=== PATIENT | female | born 1960 | race Caucasian/White ===

== ENCOUNTER 2016-07-31 12:52 | Emergency (ER) | payer BC ==
[~2016-07-31] VITALS: Wt 67.0 kg
[2016-07-31] MEDS ORDERED: ASPIRIN 325 MG TAB PO STA (13:48)
[2016-07-31 14:30] LABS: BASOPHILS % 0.4 % (0.0-2.0); EOSINOPHILS # 0.1 10^3/ul (0.0-0.5); EOSINOPHILS % 1.6 % (0.0-7.0); HEMATOCRIT 43.7 % (37.0-47.0); LYMPHOCYTES # 2.5 10^3/ul (0.8-2.9); LYMPHOCYTES % 34.3 % (15.0-51.0); MEAN CORPUSCULAR HEMOGLOBIN 30.6 pg (29.0-33.0); MEAN CORPUSCULAR HGB CONC 34.2 g/dl (32.0-37.0); MEAN CORPUSCULAR VOLUME 89.4 fl (82.0-101.0); MEAN PLATELET VOLUME 8.9 fl (7.4-10.4); MONOCYTE # 0.2 10^3/ul (0.3-0.9); MONOCYTES % 3.4 % (0.0-11.0); NEUTROPHIL # 4.4 10^3/ul (1.6-7.5); NEUTROPHILS % 60.3 % (39.0-77.0); PLATELET COUNT 267 10^3/UL (140-440); RED BLOOD COUNT 4.89 10^6/ul (4.20-5.40); RED CELL DISTRIBUTION WIDTH 13.3 % (11.5-14.5); UNCORRECTED WBC 7.4 10^3/ul (4.8-10.8); WHITE BLOOD COUNT 7.4 10^3/ul (4.8-10.8)
[2016-07-31] MEDS ORDERED: PANT40TA3 PO (14:31)
[2016-07-31] MEDS ORDERED: CHOL100062 PO (14:32)
[2016-07-31 14:40] LABS: INR 0.99; PARTIAL THROMBOPLASTIN TIME 26.3 Sec (25.0-35.0); PROTIME 13.1 Sec (12.2-14.2)
[2016-07-31 14:43] LABS: CONDITION 1
--- NOTE | 2016-07-31 14:45 | RADRPT ---
PROCEDURE: XR CHEST AP PORTABLE CLINICAL INDICATION: Chest pain TECHNIQUE: Single frontal view of the chest COMPARISON: None. FINDINGS: The cardiomediastinal silhouette and pulmonary vasculature are normal. The lungs are clear. No consolidation, effusion, or pneumothorax. The osseous structures are unremarkable. IMPRESSION: No acute cardiopulmonary process. RPTAT:PP .Mundo Conrad MD, MD Date Time Electronically viewed and signed by .Mundo Conrad MD, MD on 07/31/2016 14:45 .V/
[2016-07-31 14:46] LABS: CHLORIDE 104 mmol/L (97-110); POTASSIUM 4.2 mmol/L (3.5-5.1); SODIUM 144 mmol/L (135-144)
[2016-07-31 14:49] LABS: ANION GAP 20 (8-16); BLOOD UREA NITROGEN 12 mg/dl (7-20); CARBON DIOXIDE 24 mmol/L (21-31); CREATININE 0.55 mg/dl (0.44-1.00); GLUCOSE 106 mg/dl (70-220)
[2016-07-31 14:50] LABS: CALCIUM 9.1 mg/dl (8.4-10.2)
[2016-07-31 15:17] LABS: TROPONIN-I < 0.012 ng/ml (0.00-0.12)
[2016-07-31] MEDS ORDERED: KETOROLAC 15 MG INJ IV STA (15:24)
--- NOTE | 2016-07-31 16:11 | ERD ---
ER Documentation Chief Complaint Date/Time DATE: 07/31/16 TIME: 16:08 Chief Complaint CHEST PAIN SINCE YESTERDAY. WITH MILD PRESSURE. NO N/V HPI This is a 56-year-old female who presents to the emergency room for evaluation of chest pain, and left arm pain for the past 24 hours. The patient does state that the pain is constant and aching worse with left arm movement. She denies any nausea, vomiting, diaphoresis or shortness of breath associated with this. She came to the ER today for evaluation. ROS All systems reviewed and are negative except as per history of present illness. Medications Home Meds Reported Medications Cholecalciferol* (Vitamin D3*) 1,000 Unit Tablet, 2000 UNIT PO DAILY, TAB 07/31/16 Pantoprazole* (Protonix*) 40 Mg Tablet.dr, 40 MG PO DAILY, TAB 07/31/16 Allergies Allergies: Coded Allergies: No Known Drug Allergy (Verified Allergy, Unknown, 07/31/16) Uncoded Allergies: CONTRAST (Allergy, Severe, BREATHING, 07/31/16) PMhx/Soc Medical and Surgical Hx: pt denies Medical Hx History of Surgery: Yes (HYSTERECTOMY, OVARY CYST REMOVAL) Hx Alcohol Use: No Hx Substance Use: No Hx Tobacco Use: No Smoking Status: Never smoker Physical Exam Vitals Vital Signs Date Time Temp Pulse Resp B/P Pulse Ox O2 Delivery O2 Flow Rate FiO2 07/31/16 13:35 Nasal Cannula 2 07/31/16 12:54 98.8 98 20 125/88 98 Physical Exam INITIAL VITAL SIGNS: Reviewed by me GENERAL: The patient is well developed and appropriate for usual state of health in no apparent distress HEENT: Pupils equal, round, and reactive to light. EOMI. There is no scleral icterus. NECK: C-spine is soft and supple, there is no meningismus. There is no cervical lymphadenopathy. LUNGS: Clear to auscultation bilaterally. There are no rales, wheezes or rhonchi. HEART: Regular rate and rhythm, no murmurs, clicks, rubs or gallops. ABDOMEN: Soft, non-tender, non-distended. There are bowel sounds in all four quadrants. No rebound or guarding. EXTREMITIES: There is no peripheral cyanosis or edema. No focal swelling or erythema. NEUROLOGICAL: The patient moves all four extremities with 5/5 strength. Cranial nerves II - XII are intact. Normal gait. Alert and oriented SKIN: There is no apparent rash or petechiae. HEME/LYMPHATIC: There is no evidence of excessive bruising or lymphedema. PSYCHIATRIC: The patient does not appear anxious or depressed. Result Diagram: 07/31/16 1400 07/31/16 1400 Results 24 hrs Laboratory Tests Test 07/31/16 14:00 Activated Partial Thromboplast Time 26.3Sec Anion Gap 20 Basophils # 0.010^3/ul Basophils % 0.4% Blood Urea Nitrogen 12mg/dl Calcium Level 9.1mg/dl Carbon Dioxide Level 24mmol/L Chloride Level 104mmol/L Creatinine 0.55mg/dl Eosinophils # 0.110^3/ul Eosinophils % 1.6% Glucose Level 106mg/dl Hematocrit 43.7% Hemoglobin 15.0g/dl INR International Normalized Ratio 0.99 Lymphocytes # 2.510^3/ul Lymphocytes % 34.3% Mean Corpuscular Hemoglobin 30.6pg Mean Corpuscular Hemoglobin Concent 34.2g/dl Mean Corpuscular Volume 89.4fl Mean Platelet Volume 8.9fl Monocytes # 0.210^3/ul Monocytes % 3.4% Neutrophils # 4.410^3/ul Neutrophils % 60.3% Nucleated Red Blood Cells # 0.010^3/ul Nucleated Red Blood Cells % 0.0/100WBC Platelet Count 68264^3/UL Potassium Level 4.2mmol/L Prothrombin Time 13.1Sec Prothrombin Time Ratio 1.0 Red Blood Count 4.8910^6/ul Red Cell Distribution Width 13.3% Sodium Level 144mmol/L Troponin I < 0.012ng/ml White Blood Count 7.410^3/ul Current Medications Medications (Trade) Dose Ordered Sig/Eliazar Route PRN Reason Start Time Stop Time Status Last Admin Dose Admin Aspirin (Aspirin) 325 mg ONCE STAT PO 07/31/16 13:48 07/31/16 13:49 DC 07/31/16 13:57 Ketorolac Tromethamine (Toradol) 15 mg ONCE STAT IV 07/31/16 15:24 07/31/16 15:25 DC 07/31/16 15:54 Procedures/MDM EKG: Rate/Rhythm: [Normal Sinus Rhythm] QRS, ST, T-waves: [No changes consistent w/ acute ischemia] Impression: [No evidence of ischemia or arrhythmia] Chest X-ray 1V Interpreted by me: Soft Tissue: No acute abnormalities Bones: No acute abnormalities Mediastinum/Cardiac Silhouette/Lungs: [No acute abnormalities] This 56-year-old female presents to the emergency room for evaluation of chest pain and left arm pain that has been constant for the past 24 hours. Worse with movement. This patient had a nonischemic EKG, normal troponin, normal chest x-ray. This patient has a heart score of 0. She is in no acute distress after receiving Toradol in the emergency room. She will be discharged home at this time with a prescription for Motrin for muscular chest pain. I advised to return to the ER for chest pain worsen and she verbalized understanding. Differential diagnoses entertained was broad with potential high acuity. Patient has been evaluated for acute myocardial infarction, unstable angina, aortic dissection, pulmonary embolism, other intrathoracic and cardiac concerns. Ultimately the patient's evaluation is nondiagnostic. Based on the patient's lack of risk factors, as well as the patient's clinical, laboratory, and imaging data, the patient appears to be low risk for these high risk causes of chest pain. Departure Diagnosis: Primary Impression: Chest pain Additional Impression: Left arm pain Condition: Stable JUANITAAngelaCATALINA OWUSU Jul 31, 2016 16:10
[2016-07-31] MEDS ORDERED: IBUP800T25 PO (16:13)
[2016-07-31 16:24] VITALS: BP 144/77; PULSE 83; RESP 20; TEMP 98.8
== END 2016-07-31 16:26 | disposition home or self-care (01) ==
LOC: E/R 12:52
DX: R07.9 Chest pain, unspecified (principal); M79.602 Pain in left arm
CPT/HCPCS: 36415; 71010; 80048; 84484; 85025; 85610; 85730; 96374; 99285; J1885; Z7610

== ENCOUNTER 2016-08-31 15:08 | Emergency (ER) | END 2016-08-31 20:14 | disposition home or self-care (01) | DX: R07.89 Other chest pain (principal) ==

== ENCOUNTER 2016-11-30 11:46 | Observation (INO) | payer BC ==
[~2016-11-30] VITALS: Ht 157.5 cm; Wt 66.6 kg
[~2016-11-30 11:46] MED LIST: CHOL20003 PO; IBUP800T25 PO; PANT40TA3 PO; RANI150T5 PO
[2016-11-30] MEDS ORDERED: ASPIRIN 81 MG TAB PO STA (12:43)
--- NOTE | 2016-11-30 12:48 | ERA ---
ER Documentation Chief Complaint Date/Time DATE: 11/30/16 TIME: 12:44 Chief Complaint STABBING CHEST PAIN SINCE YESTERDAY, TODAY CHEST PRESSURE WITH SOB HPI Patient is a 56-year-old female who presents with sudden onset, sharp, severe, left precordial chest pain that lasted for a few seconds while she was in the shower last night. It resolved spontaneously. Today at 6 in the morning, she developed gradual onset, constant, moderate, pressure-like chest pain. The pain is nonradiating. The pain was associated with shortness of breath. She denies fever or cough. She denies pleuritic pain. She states that the pain has been constant since it began. She walks 40 minutes a day, and was able to complete her regular workout after the onset of her pain. She states that her exercise did not worsen her symptoms. She went to her primary physician, Dr. Ricketts, and he sent her to the ER. ROS All systems reviewed and are negative except as per history of present illness. Medications Home Meds Reported Medications Gemfibrozil* (Lopid*) 600 Mg Tablet, 600 MG PO BID, TAB 11/30/16 Ranitidine Hcl* (Ranitidine Hcl*) 150 Mg Tablet, 150 MG PO Q12, #60 TAB 08/31/16 Cholecalciferol (Vitamin D3) (VITAMIN D-3) 2,000 Unit Capsule, 2000 UNIT PO DAILY, CAP 08/31/16 Pantoprazole* (Protonix*) 40 Mg Tablet.dr, 40 MG PO DAILY, TAB 07/31/16 Discontinued Scripts Ibuprofen* (Ibuprofen*) 800 Mg Tablet, 800 MG PO Q8 for 10 Days, #30 TAB Prov:CATALINA CADENA DO 07/31/16 Allergies Allergies: Coded Allergies: No Known Drug Allergy (Verified Allergy, Unknown, 11/30/16) Uncoded Allergies: CONTRAST (Allergy, Severe, BREATHING, 07/31/16) PMhx/Soc Past medical history: Gastritis, heart murmur, prediabetes Past surgical history: None Social history: Denies tobacco or alcohol History of Surgery: Yes (HYSTERECTOMY, OVARY CYST REMOVAL) Hx Miscellaneous Medical Probl: Yes (Hyperlipidemia, hypertriglyceridemia) Hx Alcohol Use: No Hx Substance Use: No Hx Tobacco Use: No FmHx Family History: No coronary disease, No diabetes Physical Exam Vitals Vital Signs Date Time Temp Pulse Resp B/P Pulse Ox O2 Delivery O2 Flow Rate FiO2 11/30/16 14:17 68 18 114/75 99 Room Air 11/30/16 11:50 97.7 83 20 151/80 97 Physical Exam Const: Alert, no acute distress Head: Atraumatic Eyes: Normal Conjunctiva, no pallor, no icterus ENT: Normal External Ears, Nose and Mouth. Mucous membranes moist Neck: Full range of motion. No JVD Resp: Clear to auscultation bilaterally, no wheezes, no rales Cardio: Regular rate and rhythm, 1/6 systolic murmur, 2+ radial pulses bilaterally without delay. Abd: Soft, non tender, non distended. Skin: No petechiae or rashes Back: No midline or flank tenderness Ext: No cyanosis, or edema Neur: Awake and alert, cranial nerves II through XII intact bilaterally, strength and sensation full in 4 extremities Psych: Normal Mood and Affect Result Diagram: 11/30/16 1300 11/30/16 1300 Results 24 hrs Laboratory Tests Test 11/30/16 13:00 White Blood Count 5.710^3/ul Red Blood Count 4.6210^6/ul Hemoglobin 13.9g/dl Hematocrit 41.4% Mean Corpuscular Volume 89.6fl Mean Corpuscular Hemoglobin 30.1pg Mean Corpuscular Hemoglobin Concent 33.6g/dl Red Cell Distribution Width 13.0% Platelet Count 99626^3/UL Mean Platelet Volume 10.0fl Neutrophils % 56.4% Lymphocytes % 35.4% Monocytes % 5.0% Eosinophils % 2.3% Basophils % 0.5% Nucleated Red Blood Cells % 0.0/100WBC Neutrophils # 3.210^3/ul Lymphocytes # 2.010^3/ul Monocytes # 0.310^3/ul Eosinophils # 0.110^3/ul Basophils # 0.010^3/ul Nucleated Red Blood Cells # 0.010^3/ul Prothrombin Time 12.4Sec Prothrombin Time Ratio 1.0 INR International Normalized Ratio 0.92 Activated Partial Thromboplast Time 28.2Sec Sodium Level 140mmol/L Potassium Level 4.0mmol/L Chloride Level 108mmol/L Carbon Dioxide Level 24mmol/L Anion Gap 12 Blood Urea Nitrogen 14mg/dl Creatinine 0.61mg/dl Glucose Level 86mg/dl Calcium Level 9.0mg/dl Total Bilirubin 0.2mg/dl Direct Bilirubin 0.00mg/dl Indirect Bilirubin 0.2mg/dl Aspartate Amino Transf (AST/SGOT) 23IU/L Alanine Aminotransferase (ALT/SGPT) 34IU/L Alkaline Phosphatase 101IU/L Troponin I < 0.012ng/ml Total Protein 7.5g/dl Albumin 4.8g/dl Globulin 2.70g/dl Albumin/Globulin Ratio 1.77 Current Medications Medications (Trade) Dose Ordered Sig/Eliazar Route PRN Reason Start Time Stop Time Status Last Admin Dose Admin Aspirin (Aspirin) 162 mg ONCE STAT PO 11/30/16 12:43 11/30/16 12:45 DC 11/30/16 13:01 Ondansetron HCl (Zofran Inj) 4 mg ER BRIDGE PRN IV NAUSEA AND/OR VOMITING 11/30/16 15:30 12/01/16 15:29 Acetaminophen (Tylenol Tab) 650 mg ER BRIDGE PRN PO MILD PAIN/FEVER 11/30/16 15:30 12/01/16 15:29 Procedures/MDM EKG read by me: Time 1157, rate 82 Rhythm: Normal sinus Melvin: Normal Intervals: Normal ST-T waves: T-wave inversions V3 to V5 and inferior leads, no ST elevation or depression Ectopy: No Q-waves: No Impression: T-wave inversions in inferolateral leads are significantly more pronounced compared with prior EKG on August 30, 2016 MDM: Patient is a 56-year-old female who presents with 1 day of chest pain. Patient has T-wave inversions that are more pronounced than on prior EKG. The patient has had 2 prior presentations to the ER for chest pain, during which time her workup in the ER was negative and the patient was sent home due to being low risk. Today she presented to her primary physician, who sent her to the ER for further workup. The patient has a negative troponin in the setting of ongoing symptoms for more than 6 hours. She does not have features or risk factors that are concerning for pulmonary embolism, and her vital signs are normal. There are no features that are concerning for aortic dissection. Chest x-ray is unremarkable. I spoke with Dr. Ricketts, who stated that he would not be able to arrange for a timely outpatient stress test, and requested admission for inpatient stress test. I discussed the case with Dr. An, and will admit the patient to observation status. Departure Diagnosis: Primary Impression: Chest pain Qualified Code: R07.9 - Chest pain, unspecified type Condition: Stable KAREN SINGLETARY MD Nov 30, 2016 12:48
[2016-11-30 13:07] LABS: ADD SCAN DIFF NO
[2016-11-30 13:09] LABS: BASOPHILS % 0.5 % (0.0-2.0); EOSINOPHILS # 0.1 10^3/ul (0.0-0.5); EOSINOPHILS % 2.3 % (0.0-7.0); HEMATOCRIT 41.4 % (37.0-47.0); HEMOGLOBIN 13.9 g/dl (12.0-16.0); LYMPHOCYTES % 35.4 % (15.0-51.0); MEAN CORPUSCULAR HEMOGLOBIN 30.1 pg (29.0-33.0); MEAN CORPUSCULAR HGB CONC 33.6 g/dl (32.0-37.0); MEAN CORPUSCULAR VOLUME 89.6 fl (82.0-101.0); MONOCYTE # 0.3 10^3/ul (0.3-0.9); NEUTROPHIL # 3.2 10^3/ul (1.6-7.5); NEUTROPHILS % 56.4 % (39.0-77.0); PLATELET COUNT 305 10^3/UL (140-415); RED BLOOD COUNT 4.62 10^6/ul (4.20-5.40); WHITE BLOOD COUNT 5.7 10^3/ul (4.8-10.8)
[2016-11-30] MEDS ORDERED: GEMF600T PO (13:23)
[2016-11-30 13:27] LABS: INR 0.92; PROTIME 12.4 Sec (12.2-14.2)
[2016-11-30 13:28] LABS: PARTIAL THROMBOPLASTIN TIME 28.2 Sec (25.0-35.0)
[2016-11-30 13:29] LABS: ALANINE AMINOTRANSFERASE 34 IU/L (13-69); ALBUMIN 4.8 g/dl (3.3-4.9); ALBUMIN/GLOBULIN RATIO 1.77; ALKALINE PHOSPHATASE 101 IU/L (42-121); ANION GAP 12 (8-16); ASPARTATE AMINO TRANSFERASE 23 IU/L (15-46); BILIRUBIN,INDIRECT 0.2 mg/dl (0-1.1); BILIRUBIN,TOTAL 0.2 mg/dl (0.2-1.3); BLOOD UREA NITROGEN 14 mg/dl (7-20); CARBON DIOXIDE 24 mmol/L (21-31); CHLORIDE 108 mmol/L (97-110); CREATININE 0.61 mg/dl (0.44-1.00); GLUCOSE 86 mg/dl (70-220); SODIUM 140 mmol/L (135-144); TOTAL PROTEIN 7.5 g/dl (6.1-8.1)
--- NOTE | 2016-11-30 13:36 | RADRPT ---
PROCEDURE: CHEST 1VW CLINICAL INDICATION: Chest pain TECHNIQUE: Single frontal view of the chest was obtained COMPARISON: 08/31/2016 FINDINGS: The cardiac size is normal. Mild atherosclerotic calcifications are demonstrated. There is no pulmonary vascular congestion. The lungs are clear. No consolidation, effusion, or pneumothorax. Mild degenerative changes of the visualized osseous structures are visualized. IMPRESSION: 1. No acute cardiopulmonary process. 2. Atherosclerosis. RPTAT:PP .Mundo Conrad MD, MD Date Time Electronically viewed and signed by .Mundo Conrad MD, on 11/30/2016 13:36 .V/
[2016-11-30 13:38] LABS: TROPONIN-I < 0.012 ng/ml (0.00-0.12)
[2016-11-30] MEDS ORDERED: ONDANSETRON 4 MG INJ IV PRN ×2 (15:30→16:30)
[2016-11-30] MEDS ORDERED: ACETAMINOPHEN 325 MG TAB PO PRN ×2 (15:30→16:30)
[2016-11-30] MEDS ORDERED: MAGNESIUM HYDROXIDE 30ML CUP PO PRN (16:30)
[2016-11-30] MEDS ORDERED: DOCUSATE SODIUM 100 MG CAP PO PRN (16:30)
[2016-11-30] MEDS ORDERED: BISACODYL 10 MG SUPP PR PRN (16:30)
[2016-11-30] MEDS ORDERED: NACL 0.9% 3 ML SYG IV SCH (16:30)
[2016-11-30] MEDS ORDERED: NITROGLYCERIN (SL) 0.4 MG TAB SL PRN (16:30)
--- NOTE | 2016-11-30 17:07 | CONS ---
Date/Time of Note Date/Time of Note DATE: 11/30/16 TIME: 17:03 Assessment/Plan Assessment/Plan Additional Assessment/Plan Chest pain Abnormal ECG Dyspepsia -Patient with atypical symptoms of chest discomfort. Initial cardiac enzymes were negative but ECG with T-wave inversions. Would obtain serial cardiac enzymes, check d-dimer, check echocardiogram. Based on symptoms and above testing, would decide on further cardiac plan of care. Continue aspirin therapy if no contraindication. Consultation Date/Type/Reason Admit Date/Time Type of Consultation: cv Reason for Consultation Chest pain Hx of Present Illness This is a 56-year-old female with past medical history of dyspepsia who presents with chest pain. Patient was taken a shower yesterday evening developed sudden left-sided sharp chest pain. This was associated with shortness of breath. After she came out of the shower lie down, she felt better. She went to pain with no chest pain. Patient woke up this morning at approximately 6 AM with mild left-sided chest pain. Pain was aching like and occasionally pressure-like. She normally goes for 1 hour walk every morning but she was worried to leave the house. She went on the treadmill for approximately 45 minutes and her chest pain at times improved but was constantly there. She had a follow-up appointment with her physician today. She was told to come to the emergency room for further evaluation and care. She has been having the chest discomfort under her left breast since she woke up this morning. Moving her left arm at times does worsen as well as pushing on the chest wall. Exertion does not worsen her pain. She denies any shortness of breath, abdominal pain, nausea or vomiting. 12 point review of systems was performed with all pertinent positives and negatives mentioned above and all else is negative Past Medical History Dyspepsia Family History Significant Family History: no pertinent family hx Social History Alcohol Use: none Smoking Status: Never smoker Other Social History Lives at home Exam/Review of Systems Vital Signs Vitals Vital Signs Date Time Temp Pulse Resp B/P Pulse Ox O2 Delivery O2 Flow Rate FiO2 11/30/16 16:31 65 17 128/68 98 Room Air 11/30/16 11:50 97.7 Exam No apparent distress Constitutional: alert, oriented Head: normocephalic Neck: supple Respiratory: clear to auscultation, normal air movement Cardiovascular: other (S1-S2 heard), regular rate and rhythm Gastrointestinal: bowel sounds, non-tender, soft Extremities: other (No edema or cyanosis) Results Result Diagram: 11/30/16 1300 11/30/16 1300 Results 24 hrs Laboratory Tests Test 11/30/16 13:00 White Blood Count 5.7 Red Blood Count 4.62 Hemoglobin 13.9 Hematocrit 41.4 Mean Corpuscular Volume 89.6 Mean Corpuscular Hemoglobin 30.1 Mean Corpuscular Hemoglobin Concent 33.6 Red Cell Distribution Width 13.0 Platelet Count 305 Mean Platelet Volume 10.0 Neutrophils % 56.4 Lymphocytes % 35.4 Monocytes % 5.0 Eosinophils % 2.3 Basophils % 0.5 Nucleated Red Blood Cells % 0.0 Neutrophils # 3.2 Lymphocytes # 2.0 Monocytes # 0.3 Eosinophils # 0.1 Basophils # 0.0 Nucleated Red Blood Cells # 0.0 Prothrombin Time 12.4 Prothrombin Time Ratio 1.0 INR International Normalized Ratio 0.92 Activated Partial Thromboplast Time 28.2 Sodium Level 140 Potassium Level 4.0 Chloride Level 108 Carbon Dioxide Level 24 Anion Gap 12 Blood Urea Nitrogen 14 Creatinine 0.61 Glucose Level 86 Calcium Level 9.0 Total Bilirubin 0.2 Direct Bilirubin 0.00 Indirect Bilirubin 0.2 Aspartate Amino Transf (AST/SGOT) 23 Alanine Aminotransferase (ALT/SGPT) 34 Alkaline Phosphatase 101 Troponin I < 0.012 Total Protein 7.5 Albumin 4.8 Globulin 2.70 Albumin/Globulin Ratio 1.77 Medications Medications Current Medications Ondansetron HCl (Zofran Inj) 4 mg Q6H PRN IV NAUSEA AND/OR VOMITING; Start at 16:30 Aspirin (Aspirin) 81 mg DAILY PO ; Start 12/01/16 at 09:00 Nitroglycerin (Nitroglycerin (Sl Tab) 0.4 Mg) 1 tab Q5M PRN SL CHEST PAIN; Start 11/30/16 at 16:30 Acetaminophen (Tylenol Tab) 650 mg Q6H PRN PO PAIN LEVEL 1-3 OR FEVER; Start at 16:30 Docusate Sodium (Colace) 100 mg Q12H PRN PO CONSTIPATION; Start 11/30/16 at 16: 30 Magnesium Hydroxide (Milk Of Mag) 30 ml DAILY PRN PO CONSTIPATION; Start at 16:30 Bisacodyl (Dulcolax Supp) 10 mg DAILY PRN ME CONSTIPATION; Start 11/30/16 at 16 :30 Enoxaparin Sodium (Lovenox) 40 mg DAILY SC ; Start 12/01/16 at 09:00 Cholecalciferol (Vitamin D) 2,000 unit DAILY PO ; Start 12/01/16 at 09:00 Gemfibrozil (Lopid) 600 mg BID PO ; Start 11/30/16 at 21:00 Pantoprazole (Protonix Tab) 40 mg DAILY@06 PO ; Start 12/01/16 at 06:00 Procedures Procedures ECG demonstrates sinus rhythm at 77 bpm, anterolateral and inferior T-wave inversions Braulio Williamson DO Nov 30, 2016 17:07
[2016-11-30 19:06] LABS: D-DIMER 261.42 ng/ml (<460)
[2016-11-30 21:00] VITALS: Ht 157.5 cm; Wt 66.6 kg
[2016-11-30] MEDS ORDERED: FAMOTIDINE 20 MG TAB PO SCH (21:00)
[2016-11-30 21:29] VITALS: PULSE 72
[2016-11-30 22:00] VITALS: BP 146/68; RESP 20
[2016-11-30 22:10] LABS: CREATINE KINASE 33 IU/L (23-200)
[2016-11-30 22:19] LABS: CK-MB 0.28 ng/ml (0.0-2.4)
[2016-11-30] MEDS: GEMFIBROZIL 600 MG TAB PO SCH (22:19)
[2016-11-30 22:27] LABS: TROPONIN-I < 0.012 ng/ml (0.00-0.12)
[2016-12-01] VITALS (8 sets, daily range): BP systolic 113–143; BP diastolic 60–81; PULSE 58–66; RESP 16–18
[2016-12-01] MEDS ORDERED: PANTOPRAZOLE (EC) 40 MG TAB PO SCH (06:00)
[2016-12-01 08:10] LABS: ALBUMIN 4.7 g/dl (3.3-4.9); ALBUMIN/GLOBULIN RATIO 1.56; BILIRUBIN,INDIRECT 0.3 mg/dl (0-1.1); BILIRUBIN,TOTAL 0.3 mg/dl (0.2-1.3); CALCIUM 9.4 mg/dl (8.4-10.2); CHOL/HDL RATIO 5.4 RATIO; CREATININE 0.69 mg/dl (0.44-1.00); POTASSIUM 4.7 mmol/L (3.5-5.1); TOTAL PROTEIN 7.7 g/dl (6.1-8.1)
[2016-12-01] MEDS: GEMFIBROZIL 600 MG TAB PO SCH (09:00)
[2016-12-01] MEDS ORDERED: ENOXAPARIN 40 MG/0.4 ML SYG SC SCH (09:00)
[2016-12-01] MEDS ORDERED: CHOLECALCIFEROL 2,000 UNIT CAP PO SCH (09:00)
[2016-12-01] MEDS ORDERED: ASPIRIN 81 MG TAB PO SCH (09:00)
[2016-12-01] MEDS ORDERED: REGADENOSON 0.4 MG/5 ML SYG ONE (09:22)
--- NOTE | 2016-12-01 11:15 | HP ---
DATE OF ADMISSION: 11/30/2016 CHIEF COMPLAINT ON ADMISSION: Chest pain. HISTORY OF PRESENT ILLNESS: This is a 56-year-old female with history of hypertriglyceridemia and g astroesophageal reflux disease, who came into the emergency department, sent over by her primary car e physician with complaint of chest pain. The patient has been coming to the ER and this would be t he third presentation with complaints of chest pain. She claims, however, that this episode is diff erent, but it started more or less the same after she had an episode of stabbing chest pain the day prior to presentation that resolved for a few seconds and this happened during the shower and she co uld not take a deep breath during the episode. This resolved and the day of the admission on the mo , the patient woke up this chest pressure, left-sided. She claims that it was radiating to her neck. She also had some discomfort down her left arm. It never went away. She walks a mile more or less a day and she did not do it on the day of admission, she just did treadmill with no change o f her symptoms. She denies any nausea, vomiting, diaphoresis or dizziness with these symptoms. She denies any previous diagnosis of coronary artery disease. Again, this is her third presentation si hie 07/2016. She went to her primary care physician. Apparently she had a referral to go see a car diologist as an outpatient on the day of presentation in the ER. Given the fact that she has been coming to the ER for a variation of these complaints, always surrounding chest pain, at this ti mn she has been admitted for evaluation by cardiology. ALLERGIES: NO KNOWN ALLERGIES OTHER THAN CONTRAST. PAST MEDICAL HISTORY: 1. Hypertriglyceridemia. 2. Gastroesophageal reflux disease. PAST SURGICAL HISTORY: 1. Status post left inguinal hernia repair remotely. 2. Status post hysterectomy with pulse hysterectomy remotely. 3. Status post ovarian cyst removal. 4. Status post x2. REVIEW OF SYSTEMS: As per HPI. OUTPATIENT MEDICATIONS: 1. Gemfibrozil 600 mg p.o. b.i.d. 2. Protonix 40 mg p.o. daily. 3. Ranitidine 150 mg p.o. q.12h. 4. Vitamin D3 2000 units p.o. daily. SOCIAL HISTORY: The patient does not smoke or drink alcohol, and she does not do any IV drugs. PHYSICAL EXAMINATION: VITAL SIGNS: Temperature on admission 97.7, heart rate of 65, respiratory rate 17, blood pressure 1 28/68. The patient is saturating 98% on room air. GENERAL: She is alert and oriented x4. She is in no acute distress. She is fairly comfortable. S he claims that she has maybe a 2/10 discomfort in her left chest under the breast area. HEENT: Pupils are equally round and reactive to light. Extraocular muscles are intact. Anicteric sclerae. NECK: No JVD, no thyromegaly noted. HEART: Regular rate and rhythm. LUNGS: Clear to auscultation bilaterally. CHEST WALL: She has some slight discomfort, midsternal upon pressure, but she claims that is not th e same as the discomfort she was feeling earlier. ABDOMEN: Soft, nontender, nondistended. Bowel sounds are present. EXTREMITIES: No edema, clubbing or cyanosis. NEUROLOGIC: Intact. LABORATORY DATA: White blood cell count is 5.7, hemoglobin 13.9, hematocrit 41.4, platelet count of 305. Chemistry with a sodium of 140, potassium 4.0, chloride 108, bicarbonate 24, BUN 14, creatini ne 0.61, glucose of 86, calcium 9.0. Total bilirubin 0.2, AST 23, ALT 34, alkaline phosphatase of 1 01, troponin is less than 0.012, total protein 7.5, albumin 4.8. PT 12.4, INR 0.92 and a D-dimer of 261, which is within normal. EKG shows sinus rhythm with some PVCs, no acute ST or T-wave abnormalities. RADIOLOGICAL DATA: Chest x-ray shows no acute cardiopulmonary process. ASSESSMENT AND PLAN: This is a 56-year-old female with: 1. Chest pain, chest pressure, likely atypical, based on her risk factors and symptomology. Dr. Julien huston has been consulted. The patient will be ruled out overnight and observed echocardiogram has be en ordered and depending on the results of further testing would be recommended versus discharge alfonso e. Will check fasting lipid panel in a.m. Continue gemfibrozil. Will continue aspirin for now. A lso, continue proton pump inhibitors. 2. Gastroesophageal reflux disease. Continue Protonix. 3. Hypertriglyceridemia, follow up on fasting lipid panel. Continue gemfibrozil. 4. Prophylaxis. Lovenox for DVT prophylaxis. Protonix for GI prophylaxis. DISPOSITION: Admit to telemetry observation. Dictated By: SULEMA SUAREZ/EDWARD Conf#: [id number] DID#: [id number]
--- NOTE | 2016-12-01 13:26 | RADRPT ---
Echocardiogram Report Patient Name: SHIREEN URIBE Gender: Female Date: 1960 Study Date: 01-Dec-2016 Ski Patroller: Tasia Doss [facility]: DAVID PINON Quality: Good Procedures: Transthoracic echocardiogram with complete 2D, M-Mode, and doppler examination. Indications: Chest Pain. 2D/M Mode Doppler Measurement Value Normal Ranges Measurement Value Normal Ranges LVIDd 2D 4.8 3.5 - 5.6 cm AV Peak Josh 1.1 m/sec LVIDs 2D 2.8 2.1 - 4.1 cm AV Peak PG 5.0 mmHg FS 2D 41.8 % LVOT Peak Josh 0.9 m/sec LVPWd 2D 1.0 0.6 - 1.1 cm LVOT Peak PG 3.0 mmHg IVSd 2D 1.0 0.6 - 1.1 cm MV E Peak Josh 0.8 m/sec IVS/LVPW 2D 1.0 MV A Peak Josh 0.6 m/sec AoR Diam 2D 3.1 2.0 - 3.7 cm MV E/A 1.4 LA/Ao 2D 1 0 - 1 MV Decel Time 194 msec EDV 2D 110.0 cm3 MV E/A 1.4 ESV 2D 21.7 cm3 TR Peak Josh 2.1 m/sec LA Dimen 2D 2.5 2.3 - 4.0 cm TR Peak PG 18.0 mmHg RVSP 21.0 mmHg Findings Left Ventricle: Normal left ventricular systolic function. Normal left ventricular cavity size. Normal left ventricular wall thickness. Ejection fraction is visually estimated at 60 %. Tissue Doppler/Mitral Doppler indices are within normal limits. Right Ventricle: Normal right ventricular size. Normal right ventricular systolic function. Left Atrium: The left atrium is normal in size. Right Atrium: The right atrium is normal in size. Mitral Valve: Normal appearance and function of the mitral valve with trace physiologic regurgitation. Aortic Valve: Normal appearance of the aortic valve. No significant aortic stenosis or insufficiency. Tricuspid Valve: Normal appearance of the tricuspid valve. Estimated peak PA systolic pressure 21 mmHg. There is trace tricuspid regurgitation. Pulmonic Valve: Normal pulmonic valve appearance. Pericardium: Normal pericardium with no significant pericardial effusion. Aorta: Normal aortic root. IVC: Normal size and normal respiratory collapse consistent with normal right atrial pressure. Conclusions Normal left ventricular systolic function. Normal left ventricular cavity size. Normal left ventricular wall thickness. Ejection fraction is visually estimated at 60 %. Tissue Doppler/Mitral Doppler indices are within normal limits. Normal right ventricular size. Normal right ventricular systolic function. The left atrium is normal in size. The right atrium is normal in size. No significant valvular stenosis or regurgitation seen. Normal pericardium with no significant pericardial effusion. Electronically Signed By: Braulio Williamson 01-Dec-2016 13:26:24 -0700 Patient Name: SHIREEN URIBE Study Date: 01-Dec-2016 [id number]
--- NOTE | 2016-12-01 13:28 | CONS ---
Date/Time of Note Date/Time of Note DATE: 12/01/16 TIME: 13:27 Assessment/Plan Assessment/Plan Additional Assessment/Plan Chest pain Abnormal ECG Dyspepsia Preserved ejection fraction -Serial cardiac enzymes remain negative, d-dimer is negative, echocardiogram with preserved ejection fraction. Patient for nuclear cardiac perfusion study today. Consultation Date/Type/Reason Admit Date/Time Nov 30, 2016 at 15:16 Initial Consult Date Type of Consultation: cv 24 HR Interval Summary Free Text/Dictation Still complaining of chest discomfort but improving. Denies shortness of breath , dizziness or lightheadedness Exam/Review of Systems Vital Signs Vitals Vital Signs Date Time Temp Pulse Resp B/P Pulse Ox O2 Delivery O2 Flow Rate FiO2 12/01/16 12:43 58 12/01/16 08:02 97.8 18 139/81 100 12/01/16 07:46 Nasal Cannula 2.0 Intake and Output 11/30/16 11/30/16 12/01/16 15:00 23:00 07:00 Intake Total 200 ml Balance 200 ml Exam No apparent distress Constitutional: alert, oriented Head: normocephalic Neck: supple Respiratory: clear to auscultation, normal air movement Cardiovascular: other (S1-S2 heard), regular rate and rhythm Gastrointestinal: bowel sounds, non-tender, soft Extremities: other (No edema) Results Result Diagram: 11/30/16 1300 12/01/16 0700 Results 24 hrs Laboratory Tests Test 11/30/16 21:13 12/01/16 07:00 Creatine Kinase 33 Creatine Kinase Index 0.8 Creatinine Kinase MB (Mass) 0.28 Troponin I < 0.012 Sodium Level 143 Potassium Level 4.7 Chloride Level 107 Carbon Dioxide Level 26 Anion Gap 15 Blood Urea Nitrogen 15 Creatinine 0.69 Glucose Level 99 Hemoglobin A1c 5.9 Calcium Level 9.4 Magnesium Level 2.0 Total Bilirubin 0.3 Direct Bilirubin 0.00 Indirect Bilirubin 0.3 Aspartate Amino Transf (AST/SGOT) 25 Alanine Aminotransferase (ALT/SGPT) 33 Alkaline Phosphatase 95 Total Protein 7.7 Albumin 4.7 Globulin 3.00 Albumin/Globulin Ratio 1.56 Triglycerides Level 153 H Cholesterol Level 261 H LDL Cholesterol, Calculated 182 HDL Cholesterol 48 Cholesterol/HDL Ratio 5.4 Medications Medications Current Medications Ondansetron HCl (Zofran Inj) 4 mg Q6H PRN IV NAUSEA AND/OR VOMITING; Start at 16:30 Aspirin (Aspirin) 81 mg DAILY PO Last administered on 12/01/16 09:55; Admin Dose 81 MG; Start 12/01/16 at 09:00 Nitroglycerin (Nitroglycerin (Sl Tab) 0.4 Mg) 1 tab Q5M PRN SL CHEST PAIN; Start 11/30/16 at 16:30 Acetaminophen (Tylenol Tab) 650 mg Q6H PRN PO PAIN LEVEL 1-3 OR FEVER; Start at 16:30 Docusate Sodium (Colace) 100 mg Q12H PRN PO CONSTIPATION; Start 11/30/16 at 16: 30 Magnesium Hydroxide (Milk Of Mag) 30 ml DAILY PRN PO CONSTIPATION; Start at 16:30 Bisacodyl (Dulcolax Supp) 10 mg DAILY PRN [place] CONSTIPATION; Start 11/30/16 at 16 :30 Enoxaparin Sodium (Lovenox) 40 mg DAILY SC Last administered on 12/01/16 10:00 ; Admin Dose 40 MG; Start 12/01/16 at 09:00 Cholecalciferol (Vitamin D) 2,000 unit DAILY PO Last administered on 12/01/16 09:55; Admin Dose 2,000 UNIT; Start 12/01/16 at 09:00 Gemfibrozil (Lopid) 600 mg BID PO ; Start 11/30/16 at 21:00 Pantoprazole (Protonix Tab) 40 mg DAILY@06 PO Last administered on 12/01/16 06 :57; Admin Dose 40 MG; Start 12/01/16 at 06:00 Braulio Williamson DO Dec 01, 2016 13:28
--- NOTE | 2016-12-01 13:37 | CARRPT ---
DATE OF PROCEDURE: 12/01/2016 PROCEDURE: Lexiscan nuclear stress test. PATIENT HISTORY: This is a 56-year-old female who presents with chest pain and abnormal ECG. Baseline ECG demonstrates sinus rhythm at 66 beats per minute, anterior and inferior T-wave inversio ns. Baseline heart rate was 66. Blood pressure was 158/85 Lexiscan was administered as per protocol. Symptoms were headache. Peak heart rate was 114. Peak blood pressure was 158/85. ECG demonstrates flattening of T waves and no significant ST depressions seen. ARRHYTHMIAS: None. ECG interpretation is nonischemic. Nuclear portion will be interpreted by our radiology colleagues. Dictated By: GUERITA VELASQUEZ/EDWARD Conf#: [id number] DID#: [id number]
--- NOTE | 2016-12-01 14:39 | PDOCDIS ---
Discharge Instructions CONDITION Patient Condition: Good HOME CARE INSTRUCTIONS: Diet Instructions: Low Fat /Cholesterol ACTIVITY: Activity Restrictions: No Restrictions FOLLOW UP/APPOINTMENTS Appointments Follow up with PCP in 1 week SULEMA PINON Dec 01, 2016 14:39
[2016-12-01] MEDS ORDERED: ASPI81TA3 PO (14:52)
--- NOTE | 2016-12-01 16:02 | RADRPT ---
PROCEDURE: Lexiscan myocardial perfusion study CLINICAL INDICATION: 56 -year-old patient complaining of chest pain. TECHNIQUE: Lexiscan 0.4 mg intravenously separate acquisition gated myocardial perfusion SPECT usi ng Tc 99m Myoview 30.5 mCi intravenously at stress and Tc-99m Myoview, 10.1 mCi intravenously at res t was performed using the rest/stress sequence. Poststress Myoview SPECT images were obtained in th e supine position. COMPARISON: No prior studies. FINDINGS: Perfusion images reveal no evidence of perfusion defects. Lexiscan post stress gated SPECT images demonstrate no wall motion abnormalities. IMPRESSION: 1. Normal study with no evidence of perfusion defects or wall motion abnormalities. 2. The left ventricle ejection fraction at stress is 66%. A call report was made to Dr. Williamson at 04:00 p.m. on December 01, 2016. RPTAT: HH .Lakesha Donnelly MD, Date Time Electronically viewed and signed by .Lakesha Donnelly MD, on 12/01/2016 16:02 .L/
== END 2016-12-01 17:06 | disposition home or self-care (01) ==
LOC: E/R 11:46 → TEL 15:16
PROVIDERS: ADMIT Internal Medicine; ATTEND Internal Medicine
DX: R07.9 Chest pain, unspecified (principal); K21.9 Gastro-esophageal reflux disease without esophagitis; R94.31 Abnormal electrocardiogram [ECG] [EKG]; E78.1 Pure hyperglyceridemia; E78.5 Hyperlipidemia, unspecified; R10.13 Epigastric pain; Z90.49 Acquired absence of other specified parts of digestive tract; Z87.19 Personal history of other diseases of the digestive system; Z91.041 Radiographic dye allergy status
CPT/HCPCS: 36415; 71010; 78452; 80053; 80061; 82550; 82553; 83036; 83735; 84484; 85025; 85378; 85610; 85730; 93005; 93017; 93306; 96372; 99285; A9500; A9505; J1650; J2785; Z7500; Z7610; G0378

== ENCOUNTER 2017-05-19 14:48 | Emergency (ER) | payer BC ==
[~2017-05-19] VITALS: Wt 65.3 kg
[~2017-05-19 14:48] MED LIST changes: +ASPI81TA3 PO; -CHOL20003 PO; +CHOL200073 PO; +GEMF600T PO; -IBUP800T25 PO
[2017-05-19 14:53] VITALS: Wt 65.3 kg
--- NOTE | 2017-05-19 16:43 | ERD ---
ER Documentation Chief Complaint Chief Complaint l. sided cp, rad into elbow x4 days HPI 57-year-old female with a history of hyperlipidemia complaining of left-sided chest pain. She went to see her primary care doctor today, who referred her to the ED for further evaluation. Patient states that she has had constant left- sided pressure-like chest pain for 4 days, occasionally radiating to her left arm. She rates the pain at a 2 out of 10. Nothing seems to make it better or worse. No associated nausea, vomiting, diaphoresis, dizziness, shortness of breath. She denies recent fevers or chills. She states that she was admitted about 6 months ago to the hospital for chest pains that were different. At that time her workup was negative. No recent surgeries, immobilization, or long travel. ROS All systems reviewed and are negative except as per history of present illness. Medications Home Meds Reported Medications Atorvastatin Calcium* (Atorvastatin Calcium*) 20 Mg Tablet, 20 MG PO QHS, #30 TAB 05/19/17 Citalopram Hydrobromide* (Citalopram Hydrobromide*) 20 Mg Tablet, 20 MG PO DAILY , #30 TAB 05/19/17 Ranitidine Hcl* (Ranitidine Hcl*) 150 Mg Tablet, 150 MG PO Q12, #60 TAB 08/31/16 Cholecalciferol (Vitamin D3) (VITAMIN D-3) 2,000 Unit Capsule, 2000 UNIT PO DAILY, CAP 08/31/16 Pantoprazole* (Protonix*) 40 Mg Tablet.dr, 40 MG PO DAILY, TAB 07/31/16 Discontinued Reported Medications Gemfibrozil* (Lopid*) 600 Mg Tablet, 600 MG PO BID, TAB 11/30/16 Discontinued Scripts Aspirin (Aspirin) 81 Mg Chew, 81 MG PO DAILY for 30 Days, TAB OTC Prov:Rommel PINONJOYAMAU F 12/01/16 Allergies Allergies: Coded Allergies: No Known Drug Allergy (Verified Allergy, Unknown, 05/19/17) Uncoded Allergies: CONTRAST (Allergy, Severe, BREATHING, 07/31/16) PMhx/Soc History of Surgery: Yes (hysterectomy 2008; ) Anesthesia Reaction: No Hx Neurological Disorder: No Hx Respiratory Disorders: No Hx Cardiac Disorders: No Hx Psychiatric Problems: No Hx Miscellaneous Medical Probl: Yes (Hyperlipidemia) Hx Alcohol Use: No Hx Substance Use: No Hx Tobacco Use: No FmHx Family History: No coronary disease, No diabetes Physical Exam Vitals Vital Signs Date Time Temp Pulse Resp B/P Pulse Ox O2 Delivery O2 Flow Rate FiO2 05/19/17 19:25 68 18 130/71 99 Room Air 05/19/17 18:40 69 16 125/81 99 Room Air 05/19/17 17:56 67 20 138/70 99 Room Air 05/19/17 16:46 Nasal Cannula 2 05/19/17 16:38 73 20 152/86 99 Room Air 05/19/17 14:53 97.5 71 20 168/84 99 Physical Exam Const: Well-appearing, no apparent distress, nontoxic Head: Atraumatic Eyes: Normal Conjunctiva ENT: Normal External Ears, Nose and Mouth. Neck: Full range of motion..~ No meningismus. No JVD Resp: Clear to auscultation bilaterally Cardio: Regular rate and rhythm, no murmurs. 2+ distal pulses in all 4 extremities Abd: Soft, non tender, non distended. Normal bowel sounds Skin: No petechiae or rashes Back: No midline or flank tenderness Ext: No cyanosis, or edema. No calf tenderness. Neur: Awake and alert Psych: Normal Mood and Affect Result Diagram: 05/19/17 1640 05/19/17 1640 Results 24 hrs Laboratory Tests Test 05/19/17 16:40 White Blood Count 6.110^3/ul Red Blood Count 4.7110^6/ul Hemoglobin 14.2g/dl Hematocrit 41.9% Mean Corpuscular Volume 89.0fl Mean Corpuscular Hemoglobin 30.1pg Mean Corpuscular Hemoglobin Concent 33.9g/dl Red Cell Distribution Width 13.9% Platelet Count 89481^3/UL Mean Platelet Volume 10.7fl Neutrophils % 52.5% Lymphocytes % 42.1% Monocytes % 3.0% Eosinophils % 2.1% Basophils % 0.3% Nucleated Red Blood Cells % 0.0/100WBC Neutrophils # 3.210^3/ul Lymphocytes # 2.610^3/ul Monocytes # 0.210^3/ul Eosinophils # 0.110^3/ul Basophils # 0.010^3/ul Nucleated Red Blood Cells # 0.010^3/ul D-Dimer < 220.00ng/ml D-Dimer Comment Sodium Level 141mmol/L Potassium Level 4.4mmol/L Chloride Level 103mmol/L Carbon Dioxide Level 27mmol/L Anion Gap 15 Blood Urea Nitrogen 9mg/dl Creatinine 0.60mg/dl Glucose Level 103mg/dl Calcium Level 9.2mg/dl Troponin I < 0.012ng/ml Procedures/MDM EMERGENT LABS AND DIAGNOSTIC STUDIES: Lab Results above were reviewed and interpreted by me. CBC: Unremarkable BMP: Within normal limits Troponin: Within normal limits D-dimer: Within normal limits 12-lead EKG was interpreted by Fabián Cox MD: Normal Sinus Rhythm Normal axis Normal intervals Anterior T wave abnormality No STEMI. Radiology Results as interpreted by Radiology below were reviewed by Jacuqie Cox MD: Chest Xray: No acute abnormalities Initial Nursing notes reviewed. Previous Medical Records requested via the Electronic Health Record. EMERGENCY DEPARTMENT COURSE / MEDICAL DECISION MAKING: The patient presents with chest pain. Vitals are stable. I considered pulmonary embolism, aortic dissection, pneumothorax among other diagnoses. Evaluation for acute coronary syndrome was performed. The HEART score was utilized for risk stratification and found to be 1. Repeat EKG and troponin @ 3 hours were unchanged. Based on this evaluation the patient's risk of major adverse cardiac events is <1%. Shared decision making occurred with patient and the decision has been made to discharge the patient for outpatient evaluation and functional study within 72 hours. Patient instructed to arrange follow up with PCP in the next 2 days and return to the ED for any new or worsening symptoms. Patient's blood pressure was elevated (>120/80) but appears stable without evidence of hypertensive emergency or urgency. The patient was counseled about the risks of hypertension and urged to pursue outpatient monitoring and therapy within a week with their primary care physician. Departure Diagnosis: Primary Impression: Chest pain Chest pain type: other chest pain Qualified Code: R07.89 - Other chest pain Condition: Stable EKPEDRITO SANTIZO MD May 19, 2017 16:43
--- NOTE | 2017-05-19 16:56 | RADRPT ---
PROCEDURE: Chest x-ray CLINICAL INDICATION: Chest pain TECHNIQUE: Chest single view COMPARISON: 11/30/2016 FINDINGS: The heart is normal in size. The pulmonary vessels are normal in caliber. The lungs are clear. Th e costophrenic angles are sharp. The visualized bony thorax is unremarkable. IMPRESSION: No acute cardiopulmonary disease. RPTAT: HH .Sabas Stephenson MD, Date Time Electronically viewed and signed by .Sabas Stephenson MD, MD on 05/19/2017 16:56 .W/
[2017-05-19] MEDS ORDERED: ATOR20TA38 PO (17:06)
[2017-05-19] MEDS ORDERED: CITA20TA6 PO (17:06)
[2017-05-19 17:18] LABS: BASOPHILS % 0.3 % (0.0-2.0); EOSINOPHILS # 0.1 10^3/ul (0.0-0.5); EOSINOPHILS % 2.1 % (0.0-7.0); HEMATOCRIT 41.9 % (37.0-47.0); HEMOGLOBIN 14.2 g/dl (12.0-16.0); LYMPHOCYTES # 2.6 10^3/ul (0.8-2.9); LYMPHOCYTES % 42.1 % (15.0-51.0); MEAN CORPUSCULAR HEMOGLOBIN 30.1 pg (29.0-33.0); MEAN CORPUSCULAR HGB CONC 33.9 g/dl (32.0-37.0); MEAN PLATELET VOLUME 10.7 fl (7.4-10.4); MONOCYTE # 0.2 10^3/ul (0.3-0.9); NEUTROPHIL # 3.2 10^3/ul (1.6-7.5); NEUTROPHILS % 52.5 % (39.0-77.0); PLATELET COUNT 282 10^3/UL (140-415); RED BLOOD COUNT 4.71 10^6/ul (4.20-5.40); RED CELL DISTRIBUTION WIDTH 13.9 % (11.5-14.5); WHITE BLOOD COUNT 6.1 10^3/ul (4.8-10.8)
[2017-05-19 17:43] LABS: ANION GAP 15 (8-16); BLOOD UREA NITROGEN 9 mg/dl (7-20); CALCIUM 9.2 mg/dl (8.4-10.2); CARBON DIOXIDE 27 mmol/L (21-31); CHLORIDE 103 mmol/L (97-110); GLUCOSE 103 mg/dl (70-220); POTASSIUM 4.4 mmol/L (3.5-5.1); SODIUM 141 mmol/L (135-144)
[2017-05-19 17:58] LABS: TROPONIN-I < 0.012 ng/ml (0.00-0.12)
[2017-05-19 19:17] LABS: D-DIMER < 220.00 ng/ml (<460)
[2017-05-19 19:25] VITALS: BP 130/71; PULSE 68; RESP 18
== END 2017-05-19 19:30 | disposition home or self-care (01) ==
LOC: E/R 14:48
DX: R07.89 Other chest pain (principal); R40.2252 Coma scale, best verbal response, oriented, at arrival to emergency department; R40.2142 Coma scale, eyes open, spontaneous, at arrival to emergency department; R40.2362 Coma scale, best motor response, obeys commands, at arrival to emergency department; Z79.82 Long term (current) use of aspirin
CPT/HCPCS: 36415; 71010; 80048; 84484; 85025; 85378; 93005